=== PATIENT | male | born 2000 | race Caucasian/White ===

== ENCOUNTER 2020-12-10 08:28 | Emergency (ER) | payer BC ==
[~2020-12-10] VITALS: Ht 185.4 cm; Wt 91.0 kg
[~2020-12-10 08:28] MED LIST: DOCU-131 PO; HYDR-2214 PO; ONDA4TAB10 PO
[2020-12-10] MEDS ORDERED: LIDOCAINE-MPF 1%, 5ML ONE (08:31)
[2020-12-10 08:32] VITALS: BP 122/85
[2020-12-10] MEDS ORDERED: BUPIVACAINE 0.25% ONE (08:37)
[2020-12-10] MEDS ORDERED: LIDOCAINE-MPF 1%, 5ML INFIL ONE (09:00)
[2020-12-10] MEDS ORDERED: BUPIVACAINE/PF-EPI 0.25% 1:200K SQ ONE (09:00)
== END 2020-12-10 09:10 | disposition home or self-care (01) ==
LOC: ED 08:41
DX: L05.01 Pilonidal cyst with abscess (principal)
CPT/HCPCS: 10080; 82962